=== PATIENT | female | born 1955 | race Caucasian/White ===

== ENCOUNTER 2019-02-14 23:07 | Emergency (ER) | payer OTHER ==
[~2019-02-14] VITALS: Ht 147.3 cm; Wt 72.6 kg
[2019-02-15] MEDS ORDERED: MECLIZINE HCL25 MG PO (05:17)
== END 2019-02-15 06:29 | disposition home or self-care (01) ==
LOC: ER 23:07
DX: R42 Dizziness and giddiness (principal)